=== PATIENT | female | born 1985 | race Caucasian/White ===

== ENCOUNTER 2022-06-18 17:32 | Outpatient (CLI) | payer OTHER, MEDICAID ==
--- NOTE | 2022-06-19 10:54 | XRAY Report ---
PROCEDURE: Knee 4 View LT INDICATIONS: EDEMA OF KNEE/CONTUSION OF LEFT KNEE,INITIAL ENC TECHNIQUE: 4 views of the left knee(s) were acquired. COMPARISON: None. FINDINGS: Bones: No significant degenerative changes. No displaced fracture or dislocation. Soft tissues: Possible effusion. IMPRESSION: No acute radiographic abnormality. Possible effusion. If there is high concern for furth er derangement, consider MRI evaluation. Reviewed by: Wilmar Rivas MD on 06/19/2022 10:53 AM PDT Approved by: Wilmar Rivas MD on 06/19/2022 10:53 AM PDT Station ID: [id number]
== END 2022-06-18 17:33 | disposition home or self-care (01) ==
LOC: DI 17:32
PROVIDERS: ATTEND Registered Nurse
DX: R60.0 Localized edema (principal); S80.02XA Contusion of left knee, initial encounter

== ENCOUNTER 2022-07-09 15:49 | Outpatient (CLI) | payer MEDICAID ==
--- NOTE | 2022-07-09 16:57 | XRAY Report ---
PROCEDURE: Knee 3 View LT INDICATIONS: LEFT KNEE PAIN TECHNIQUE: 3 views of the left knee and one view of the right knee(s) were acquired. COMPARISON: 06/18/2022 FINDINGS: Bones: No fractures or dislocations. No suspicious bony lesions. Soft tissues: No knee joint effusion. No suspicious soft tissue calcifications or masses. IMPRESSION: No acute bony abnormality. Reviewed by: Jasmin Gar MD on 07/09/2022 4:56 PM PDT Approved by: Jasmin Gar MD on 07/09/2022 4:56 PM PDT Station ID: [id number]
== END 2022-07-09 15:53 | disposition home or self-care (01) ==
LOC: DI.WOS 15:49
PROVIDERS: ATTEND Physician Assistant Surgical
DX: R60.0 Localized edema (principal); M25.562 Pain in left knee